=== PATIENT | female | born 1940 | race Caucasian/White ===

== ENCOUNTER 2021-10-30 18:50 | Emergency (ER) | payer OTHER, MEDICAID ==
[~2021-10-30] VITALS: Ht 157.5 cm; Wt 65.8 kg
[2021-10-30 18:53] VITALS: BP 128/70
--- NOTE | 2021-10-30 22:15 | NUR ---
SEEN AND EXAMINED BY JARETT
[2021-10-30] MEDS ORDERED: ACETAMINOPHEN EXTRA STRENGTH 500 MG TAB PO ONE (22:25)
[2021-10-30] MEDS ORDERED: ACET-10509 PO (23:35)
[2021-10-31 01:10] VITALS: BP 128/70
--- NOTE | 2021-10-31 01:10 | NUR ---
Patient discharged with v/s stable. Written and verbal after care instructions given and explained. Patient alert, oriented and verbalized understanding of instructions. Ambulatory with steady gait. All questions addressed prior to discharge. ID band removed. Patient advised to follow up with PMD. Rx of TYLENOL, given. Patient educated on indication of medication including possible reaction and side effects. Opportunity to ask questions provided and answered.
[2021-10-31] MEDS ORDERED: ACETAMINOPHEN EXTRA STRENGTH 500 MG TAB ONE (01:16)
== END 2021-10-31 01:10 | disposition home or self-care (01) ==
LOC: MED 18:50
DX: S80.01XA Contusion of right knee, initial encounter (principal); Z79.899 Other long term (current) drug therapy; W19.XXXA Unspecified fall, initial encounter; Y93.89 Activity, other specified; Y92.89 Other specified places as the place of occurrence of the external cause; Y99.8 Other external cause status
CPT/HCPCS: 73562; 99283